=== PATIENT | male | born 1975 | race Caucasian/White ===

== ENCOUNTER 2018-12-26 12:02 | Emergency (ER) | payer MEDICAID, OTHER ==
[~2018-12-26] VITALS: Ht 170.2 cm; Wt 79.5 kg
[2018-12-26 12:12] VITALS: BP 133/95
[2018-12-26] MEDS ORDERED: TETanus/Pertussis (Acell)/Diphther VAC/PF (Tdap-Adult) 0.5ml syringe IM ONE (12:50)
[2018-12-26] MEDS ORDERED: LIDOcaine 1% w/epiNEPHrine 1:200,000 30ml vial IM ONE (12:50)
== END 2018-12-26 13:43 | disposition home or self-care (01) ==
LOC: ER 12:02
DX: S01.01XA Laceration without foreign body of scalp, initial encounter (principal); F41.9 Anxiety disorder, unspecified; F32.9 Major depressive disorder, single episode, unspecified; Z98.890 Other specified postprocedural states; W18.39XA Other fall on same level, initial encounter; Y93.89 Activity, other specified; Y92.89 Other specified places as the place of occurrence of the external cause; Y99.8 Other external cause status
CPT/HCPCS: 12001; 90471; 99283

== ENCOUNTER 2019-01-08 14:11 | Emergency (ER) | payer OTHER ==
[~2019-01-08] VITALS: Ht 170.2 cm; Wt 77.0 kg
[2019-01-08 14:20] VITALS: BP 119/87
== END 2019-01-08 14:51 | disposition home or self-care (01) ==
LOC: ER 14:11
DX: S01.81XD Laceration without foreign body of other part of head, subsequent encounter (principal); F41.9 Anxiety disorder, unspecified; F32.9 Major depressive disorder, single episode, unspecified; Z98.890 Other specified postprocedural states; X58.XXXD Exposure to other specified factors, subsequent encounter
CPT/HCPCS: 99281

== ENCOUNTER 2019-01-29 15:44 | Emergency (ER) | payer OTHER ==
[~2019-01-29] VITALS: Ht 170.2 cm; Wt 75.0 kg
[2019-01-29] MEDS ORDERED: LORazepam 1 MG tablet PO ONE (16:20)
[2019-01-29 16:41] LABS: BASOPHILS # (AUTO) 0.1 X10'3 (0-0.2); BASOPHILS % (AUTO) 1.2 % (0-1); EOSINOPHILS # (AUTO) 0.1 X10'3 (0-0.9); EOSINOPHILS % (AUTO) 1.1 % (0-6); HEMOGLOBIN 14.5 g/dl (14.0-17.9); LYMPHOCYTES # (AUTO) 3.1 X10'3 (1.1-4.8); LYMPHOCYTES % (AUTO) 29.8 % (21-51); MEAN CORPUSCULAR HEMOGLOBIN 28.8 PG (27.0-31.0); MEAN CORPUSCULAR HGB CONC 33.7 g/dL (33.0-36.5); MEAN CORPUSCULAR VOLUME 85.5 FL (78-98); MEAN PLATELET VOLUME 8.1 FL (7.4-10.4); MONOCYTES % (AUTO) 9.7 % (2-12); NEUTROPHILS # (AUTO) 6.1 X10'3 (1.8-7.7); NEUTROPHILS % (AUTO) 58.2 % (42-75); PLATELET COUNT 385 X10'3 (140-440); RED BLOOD COUNT 5.03 X10'6 (4.70-6.10); RED CELL DISTRIBUTION WIDTH 14.6 % (11.5-14.5); WHITE BLOOD COUNT 10.5 X10'3 (4.5-11.0)
[2019-01-29 17:00] LABS: ALANINE AMINOTRANSFERASE 23 U/L (12-78); ALBUMIN 3.7 G/DL (3.4-5.0); ALBUMIN/GLOBULIN RATIO 0.9 (1.1-1.5); ALKALINE PHOSPHATASE 101 IU/L (46-116); ANION GAP 8 (8-16); ASPARTATE AMINO TRANSFERASE 11 U/L (10-37); BILIRUBIN,TOTAL 0.3 MG/DL (0.1-1.0); BLOOD UREA NITROGEN 22 MG/DL (7-18); BUN/CREATININE RATIO 19.6 (5.4-32.0); CALCIUM 8.6 MG/DL (8.5-10.1); CHLORIDE 107 MMOL/L (99-107); CREATININE 1.12 MG/DL (0.60-1.10); GLUCOSE 79 MG/DL (70-104); POTASSIUM 3.8 MMOL/L (3.5-5.1); SODIUM 144 MMOL/L (135-145); TOTAL CARBON DIOXIDE 28.6 MMOL/L (24-32); TOTAL PROTEIN 7.7 G/DL (6.4-8.2); eGFR 72 ML/MIN
[2019-01-29 17:10] LABS: ETHANOL < 0.010 GM/DL (0.0-0.010)
--- NOTE | 2019-01-29 17:51 | NUR ---
Patient transfered from Bed 13 in the Main ER to Bed 22 in the Overflow Area. Made comfortable in bed. 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 I lost my , my little girl and my house. Everything went downhill. I ended up choosing to live in my car. That's where I am now. Last night I dreamed I actually killed myself. It was so real. It really scared me. I thought I better bring myself in." In green gowns. Made comfortable in bed.
--- NOTE | 2019-01-29 18:03 | NUR ---
Report from Nurse Laura noted that patient has had a longwall headgate operator meth addiction. He used meth possibly up to three days ago. 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 Asleep at this time.
[2019-01-29 19:53] LABS: CLARITY,URINE CLEAR (Clear); COLOR,URINE YELLOW (Yellow); GLUCOSE, URINE NEGATIVE (Neg); KETONES,URINE NEGATIVE (Neg); LEUKOCYTE ESTERASE ,URINE NEGATIVE (Neg); NITRITES, URINE NEGATIVE (Neg); OCCULT BLOOD,URINE NEGATIVE (Neg); PROTEIN,URINE NEGATIVE (Neg); UA COLLECTION TYPE CLN CATCH MIDSTREAM; UROBILINOGEN,URINE 0.2 E.U/dL (0.2-1.0)
[2019-01-29 20:05] LABS: URINE AMPHETAMINE SCREEN POSITIVE (Neg); URINE BARBITUATE SCREEN NEGATIVE (Neg); URINE BENZODIAZEPINES SCREEN NEGATIVE (Neg); URINE CANNABINOID SCREEN POSITIVE (Neg); URINE COCAINE SCREEN NEGATIVE (Neg); URINE METHADONE SCREEN NEGATIVE (Neg); URINE OPIATE SCREEN NEGATIVE (Neg); URINE PHENCYCLIDINE SCREEN NEGATIVE (Neg)
--- NOTE | 2019-01-30 00:40 | NUR ---
Assumed care of patient from Sarah WATERMAN. The patient is sleeping on his left side. Resp. are even and unlabored. No s/s of distress.
--- NOTE | 2019-01-30 02:44 | NUR ---
The patient is laying on his left side with eyes closed. Resp. are even and unlabored. No s/s of distress.
--- NOTE | 2019-01-30 04:20 | NUR ---
The patient is resting in supine position with his eyes closed. Resp. rate is even and unlabored. No s/s of distress.
--- NOTE | 2019-01-30 06:20 | NUR ---
Patient sleeping on right side. No restlessness/distress observed. Continue to monitor.
--- NOTE | 2019-01-30 07:55 | NUR ---
Patient eating breakfast. No distress observed. Continue to monitor.
--- NOTE | 2019-01-30 09:30 | NUR ---
Patient was placed on a [address] which should have been placed last night by Mitch Barnes which was overlooked. Continue to monitor.
--- NOTE | 2019-01-30 11:05 | NUR ---
Patient ambulatory to BR, steady gait. No distress observed. Continue to monitor.
--- NOTE | 2019-01-30 12:37 | NUR ---
Patient sleeping on right side. No distress observed. Continue to monitor.
--- NOTE | 2019-01-30 13:07 | NUR ---
Patient sitting up and eating lunch. No distress observed. Continue to monitor.
--- NOTE | 2019-01-30 15:00 | NUR ---
Patient sleeping on left side. No restlessness observed. Continue to monitor.
[2019-01-30] MEDS ORDERED: LORazepam 1 MG tablet PO ONE (17:30)
--- NOTE | 2019-01-30 17:36 | NUR ---
Patient spoke at length on the phone with his ex-. Afterwards became restless, pounding his hand into his fist, stating "I don't know what I'm doing here." Feeling uncomfortable "coming down from the meth." Dr. Fitzgerald consulted. Order given for Ativan 1 mg. PO ONCE. Medication administered as ordered without event.
--- NOTE | 2019-01-30 18:38 | NUR ---
Patient asking to be discharged. States vehemently that he is not suicidal "and I just needed to get some sleep." Dr. Fitzgerald consulted. Order received to discharge patient.
[2019-01-30 18:48] VITALS: BP 153/97
== END 2019-01-30 18:54 | disposition home or self-care (01) ==
LOC: ER 15:45
DX: F32.9 Major depressive disorder, single episode, unspecified (principal); F43.10 Post-traumatic stress disorder, unspecified; F15.90 Other stimulant use, unspecified, uncomplicated; F41.9 Anxiety disorder, unspecified; Z98.890 Other specified postprocedural states
CPT/HCPCS: 36415; 80053; 80305; 80320; 81003; 84443; 85025; 99284

== ENCOUNTER 2024-11-12 16:41 | Emergency (ER) | payer OTHER ==
[~2024-11-12] VITALS: Ht 170.2 cm; Wt 79.5 kg
[2024-11-12] MEDS ORDERED: EZET10TA6 PO (17:23)
[2024-11-12] MEDS ORDERED: UNABLE TO OBTAIN (17:23)
[2024-11-12] MEDS ORDERED: ATOR10TA70 PO (17:23)
[2024-11-12] MEDS ORDERED: GABA-530 PO (17:23)
[2024-11-12 17:42] LABS: MEAN PLATELET VOLUME 8.4 FL (7.4-10.4); RED CELL DISTRIBUTION WIDTH 15.4 % (11.5-14.5)
[2024-11-12 18:04] LABS: CREATININE 1.31 MG/DL (0.60-1.10); ETHANOL < 10 MG/DL (<10); TOTAL CARBON DIOXIDE 33.1 MMOL/L (24-32); eCRCL 64 ML/MIN; eGFR 58 ML/MIN
--- NOTE | 2024-11-12 18:18 | Physician Documentation ---
History of Present Illness ~ Chief Complaint: 5150 Stated Complaint: 5150 Time Seen by MD: 18:01 Primary Medical Doctor: none HPI Patient presents to the emergency room on a written 5150 from the MS. Patient does endorse suicidal ideation. Currently complaining of insomnia and anxiety. Medication Reconciliation Allergies: Coded Allergies: No Known Allergies (Unverified , 10/03/09) Scheduled Atorvastatin Calcium (Atorvastatin Calcium), 1 TAB PO DAILY, (Reported) Ezetimibe (Zetia), 1 TAB PO DAILY, (Reported) Gabapentin (Gabapentin), 3 CAP PO HS, (Reported) Miscellaneous Medications Unable to Obtain Medications (Unable to Obtain Medications), (Reported) Past Medical History Past Medical History: Anxiety, Depression Past Surgical History: orthopedic surgeries Alcohol Use: None Drug Use: none Lives with: Family Lives In: Home Occupation: student Review of Systems ROS All review of systems negative except as per HPI Physical Exam Vital Signs: Temperature: 97.6, Source: Temporal, Heart Rate: 74, Respiratory Rate: 18, BP: 129/82, Pulse Oximetry: 97, Weight: 79.550 Physical Exam General: Patient is awake, alert, oriented x4 in no acute distress and well appearing.~ Head: Normocephalic and atraumatic. Eyes: Conjunctival normal. EOMI. PERRL. ENT: Mucous membranes moist. Neck: Supple, trachea is midline. Chest: Clear to auscultation bilaterally without rales, rhonchi, or wheezes. There is no accessory muscle use or retractions. Cardiac: RRR without murmurs, gallops, or rubs. Psych: Decreased affect, poor eye contact, suicidal Progress Results/Orders Results/Orders Completed Orders - MANPREET CASILLAS MD Hydroxyzine Tablet (Atarax Tablet) (11/12/24 18:30) Medications Received in ER Medications (Trade) Dose Ordered Sig/Tc Route PRN Reason Start Time Stop Time Status Last Admin Dose Admin (Atarax tablet) 50 mg ONCE ONCE PO 11/12/24 18:30 11/12/24 18:31 DC 11/12/24 18:38 50 MG Vital Signs 11/12/24 16:48 Temp 97.6 Pulse 74 Resp 18 B/P (MAP) 129/82 Pulse Ox 97 Laboratory Tests Test 11/12/24 16:55 11/12/24 17:25 11/12/24 18:18 SARS-CoV-2 Antigen (Rapid) Negative White Blood Count 8.1 Red Blood Count 5.38 Hemoglobin 15.2 Hematocrit 45.2 Mean Corpuscular Volume 84.1 Mean Corpuscular Hemoglobin 28.2 Mean Corpuscular Hemoglobin Concent 33.6 Red Cell Distribution Width 15.4 H Platelet Count 319 Mean Platelet Volume 8.4 Neutrophils (%) (Auto) 65.1 Lymphocytes (%) (Auto) 21.7 Monocytes (%) (Auto) 11.5 Eosinophils (%) (Auto) 0.7 Basophils (%) (Auto) 1.0 Neutrophils # (Auto) 5.3 Lymphocytes # (Auto) 1.8 Monocytes # (Auto) 0.9 Eosinophils # (Auto) 0.1 Basophils # (Auto) 0.1 CBC Comment Sodium Level 142 Potassium Level 4.6 Chloride Level 107 Carbon Dioxide Level 33.1 H Anion Gap 2 L Blood Urea Nitrogen 18 Creatinine 1.31 H Estimated GFR/1.73 m2 58 BUN/Creatinine Ratio 13.7 Glucose Level 91 Calcium Level 8.7 Albumin 3.1 L Thyroid Stimulating Hormone (TSH) 1.02 Chemistry Comments Ethyl Alcohol Level < 10 Urine Comment Drug Screen Comment Medical Decision Making Findings Patient presents to the emergency room with suicidal ideation written on a 5150. Labs reviewed and there was no evidence of major pathologic derangements and patient is medically cleared for mental health evaluation. Departure Disposition: 30 STILL A PATIENT Impression: Primary Impression: Suicidal ideation Condition: Guarded Referrals: NO PRIMARY CARE PROVIDER (PCP) Signature Scribe Signature: No scribe Attestation: The note accurately reflects work and decisions made by me.Manpreet Casillas MD 11/12/24 18:43 MANPREET CASILLAS MD Nov 12, 2024 18:17
[2024-11-12 18:35] LABS: LEUKOCYTE ESTERASE ,URINE NEGATIVE (Neg); NITRITES, URINE NEGATIVE (Neg); OCCULT BLOOD,URINE NEGATIVE (Neg)
[2024-11-12 18:44] LABS: UA COLLECTION TYPE VOIDED
[2024-11-12 18:45] LABS: AMORPHOUS PHOSPHATES 4+; MUCUS STRANDS NONE SEEN /LPF (Neg); SQUAMOUS EPITHELIAL CELL,UR NONE SEEN /LPF (FEW)
[2024-11-12 19:02] LABS: URINE AMPHETAMINE SCREEN POSITIVE (Neg); URINE BARBITUATE SCREEN NEGATIVE (Neg); URINE BENZODIAZEPINES SCREEN NEGATIVE (Neg); URINE COCAINE SCREEN NEGATIVE (Neg); URINE METHADONE SCREEN NEGATIVE (Neg); URINE OPIATE SCREEN NEGATIVE (Neg); URINE PHENCYCLIDINE SCREEN NEGATIVE (Neg)
[2024-11-14 12:55] VITALS: BP 116/72; O2SAT 96
[2024-11-14 12:57] VITALS: PULSE 75; RESP 16; TEMP 97.6
== END 2024-11-14 12:45 ==
LOC: ER 16:41
DX: R45.851 Suicidal ideations (principal); F41.9 Anxiety disorder, unspecified; Z20.822 Contact with and (suspected) exposure to COVID-19; Z79.899 Other long term (current) drug therapy
CPT/HCPCS: 36415; 80048; 80305; 80320; 81001; 84443; 85025; 87811; 99285; C2617; Q0163; Q0177

== ENCOUNTER → 2024-12-01 | Emergency (ER) | payer OTHER ==
[~2024-12-01] VITALS: Ht 170.2 cm; Wt 79.5 kg
[~2024-12-01] MED LIST: ATOR10TA70 PO; EZET10TA6 PO; GABA-530 PO; UNABLE TO OBTAIN
[2024-12-01 22:19] VITALS: BP 119/76; PULSE 65; RESP 16; TEMP 97; O2SAT 99
--- NOTE | 2024-12-01 22:32 | ELECTROCARDIOGRAPH REPORT ---
[facility] Test Date: 2024-12-01 Test Time: 22:30:06 Pat Name: MIK BLANCO Department: EMERGENCY ROOM Room: Gender: M Taker Down: LEATHA : 1975 Requested By: JEREMIAH OVIEDO Order Number: [id number] Reading MD: Dr. Jeremiah Oviedo Measurements Intervals [place] Rate: 70 P: 19 CO: 151 QRS: -17 QRSD: 74 T: 29 QT: 382 QTc: 413 Interpretive Statements Sinus rhythm Probable left atrial enlargement Borderline left axis deviation RSR' in V1 or V2, probably normal variant Baseline wander in lead(s) V3 Electronically Signed On 12-01-2024 22:50:[address] Jeremiah Oviedo Please click the below link to view image of tracing.
--- NOTE | 2024-12-01 23:57 | Physician Documentation ---
History of Present Illness ~ Chief Complaint: Anxiety Stated Complaint: ANXIETY OK to notify your PCP?: Yes Primary Medical Doctor: ZHANNA Source: patient Mode of Arrival: POV Exam Limitations: no limitations HPI 49-year-old male presents with anxiety that started after having 2 shots of whiskey this evening around 5:30 p.m.. He states that he normally does not get anxious with drinking so this is new for him. He does endorse using meth once a month as well. He denies any chest pain, shortness of breath or palpitations. He states he has a history of anxiety and this feels similar. He denies any HI or SI. Medication Reconciliation Allergies: Coded Allergies: No Known Allergies (Unverified , 12/01/24) Scheduled Atorvastatin Calcium (Atorvastatin Calcium), 1 TAB PO DAILY, (Reported) Ezetimibe (Zetia), 1 TAB PO DAILY, (Reported) Gabapentin (Gabapentin), 3 CAP PO HS, (Reported) Miscellaneous Medications Unable to Obtain Medications (Unable to Obtain Medications), (Reported) Past Medical History Past Medical History: Anxiety, Depression Past Surgical History: orthopedic surgeries Alcohol Use: None Drug Use: none Lives with: Family Lives In: Home Occupation: student Review of Systems All Other Systems at this time: Reviewed and Negative Physical Exam Vital Signs: RN Vital Signs have been reviewed: Yes, Temperature: 97.0, Source: Temporal, Heart Rate: 65, Respiratory Rate: 16, BP: 119/76, Pulse Oximetry: 99, Weight: 79.450 Oxygen Flow Rate: 0 Pulse Oximetry Reflects: adequate oxygenation Physical Exam General: Alert, no distress. HEENT: No injection, moist mucous membranes. Neck: Full range of motion. Respiratory: No respiratory distress, equal chest rise and fall. Chest: No accessory muscle use. Cardiovascular: Regular rate and rhythm. Gastrointestinal: Nondistended. Extremities: Normal range of motion, no deformity. Neurologic: Oriented x4. Psychiatric: Normal mood and affect. Skin: Normal color, warm and dry. Progress Results/Orders Results/Orders Vital Signs 12/01/24 22:19 Temp 97.0 Pulse 65 Resp 16 B/P (MAP) 119/76 Pulse Ox 99 O2 Flow Rate 0 Medical Decision Making Findings Eloped from lobby after MSE. States is no longer feeling anxious to registration staff Departure Disposition: LEFT AWOL/ELOPED Impression: Primary Impression: Eloped from emergency department Referrals: NO PRIMARY CARE PROVIDER (PCP) Additional Comment Medical Screen Exam This patient recieved a medical screening examination. After reviewing the individual's medical complaints with presenting symptoms and performing an appropriate physical examination, it was determined that no immediate life- threatening emergency medical condition is present. This individual is also not a women having contractions. Signature Scribe Signature: . Attestation: Scribed for Emergency,Department by Catarina Pool NP . 12/01/24 23:57 Parts of this note were created using N(i)² voice recognition software pro gram. While efforts were made to correct any mistakes made by this voice recognition software program, nonsensical phrases may remain in this note. In addition, there may be errors and syntax, grammar, content and spelling. CATARINA SHIN [facility] Dec 01, 2024 23:57
== END | disposition left against medical advice (07) ==
LOC: ER 22:03
DX: F41.9 Anxiety disorder, unspecified (principal); R07.9 Chest pain, unspecified; F32.A Depression, unspecified
CPT/HCPCS: 93005; 99283